=== PATIENT | male | born 1980 | race Caucasian/White ===

== ENCOUNTER 2016-11-27 16:33 | Emergency (ER) | payer SELFPAY ==
--- NOTE | ~2016-11-27 | ER ---
PATIENT'S NAME: BEAR CASAREZ [facility] AGE: 35 Y [address] ROOM: [place] [address] LOCATION: [facility] ADMIT DATE: 11/27/2016 ER/Outpatient Report DISCHARGE DATE: 11/27/2016 FAMILY PHYSICIAN: PHYSICIAN, NO ATTENDING PHYSICIAN: Ginny Garza Time Seen: 1640 hours. HISTORY OF PRESENT ILLNESS: The patient is a 35-year-old male who was using a screwdriver when it slipped causing a puncture wound to his left hand. The patient states that the screwdriver went into the palm of his hand on the thumb side. He said he did notice it tenting up on the dorsal aspect of his hand. The patient was able to remove the screwdriver by himself. He states there was just minimal bleeding, and he did immediately wash it out with running water. The patient does complain of pain up to his left forearm, however, denies any numbness or tingling. ALLERGIES: LATEX, NEOSPORIN. CURRENT MEDICATIONS: None. MEDICAL HISTORY: Excludes any chronic diseases. PAST SURGICAL HISTORY: He has had a hernia repair, bladder stones, and right shoulder repair. SOCIAL HISTORY: Nonsmoker. Alcohol occasionally. IMMUNIZATIONS: States he had tetanus about three years ago. REVIEW OF SYSTEMS: GENERAL: No recent infections. MUSCULOSKELETAL: Puncture wound to the palmar surface of his left hand. NEUROLOGIC: No numbness or tingling to his fingers involving his left hand. PHYSICAL EXAMINATION: VITAL SIGNS: Vital signs were reviewed. GENERAL: He was alert and cooperative. EXTREMITIES: Exam of the left hand; on the base of the thumb, there was a PATIENT'S NAME: BEAR CASAREZ [facility] AGE: 35 Y [address] ROOM: [place] [address] LOCATION: [facility] ADMIT DATE: 11/27/2016 ER/Outpatient Report DISCHARGE DATE: 11/27/2016 FAMILY PHYSICIAN: PHYSICIAN, NO ATTENDING PHYSICIAN: Ginny Garza A small centimeter wound. The hand itself did not appear swollen, but it was tender to palpation. Sensation to light touch and pain distally appeared normal. Normal range of motion of his thumb and fingers. LABORATORY DATA AND X-RAYS: X-rays also were negative for any bony injury. ASSESSMENT: Puncture wound, left hand palmar side. PLAN: washing the entry wound with soap and water at least twice a day. Watch closely for infection over the next 48 hours, which could include swelling, increased pain, or redness. Ibuprofen for pain as needed. JOVANNY YATES FOR MD STEVE CONNOR/merritt /[id number] d: 11/28/16 0024 t: 11/30/16 0922, OUTPATIENT REPORT
[~2016-11-27 16:33] MED LIST: MOTRIN400 MG; PRILOSEC20 M1 PO; ROBITUSSIN100 MG/5 M PO; TYLENOL325 MG PO; ZITHROMAX250 MG PO
== END 2016-11-27 17:12 | disposition disaster alternative care site (69) ==
LOC: GACC 16:33
DX: S61.432A Puncture wound without foreign body of left hand, initial encounter (principal); Z91.040 Latex allergy status; Z88.1 Allergy status to other antibiotic agents; Z98.890 Other specified postprocedural states; W27.0XXA Contact with workbench tool, initial encounter